=== PATIENT | male | born 1995 | race Two or more races ===

== ENCOUNTER 2024-11-17 02:36 | Emergency (ER) | payer MEDICAID, SELFPAY ==
[2024-11-17 02:38] VITALS: BMI 34.9
--- NOTE | 2024-11-17 03:00 | PC.NURSE ---
CALLED PT IN ER LOBBY AND OUTSIDE AND NO ANSWER AT THIS TIME.
--- NOTE | 2024-11-17 03:48 | PC.NURSE ---
no answer when called to be seen
--- NOTE | 2024-11-17 03:52 | PD.EDADDENDU ---
Emergency Room Addendum Addendum Narrative: When I looked for the patient to start my evaluation, I was told the patient eloped. Ashish So MD
--- NOTE | 2024-11-17 05:00 | PC.NURSE ---
CALLED PT IN ER LOBBY AND ER AND NO ANSWER.
--- NOTE | 2024-11-17 06:07 | PC.NURSE ---
CALLED PT IN ER AND ER LOBBY AND NO ANSWER.
== END 2024-11-17 06:10 | disposition left against medical advice (07) ==
LOC: SERX 04:10
PROVIDERS: Emergency Provider Emergency Medicine
DX: Z53.21 Procedure and treatment not carried out due to patient leaving prior to being seen by health care provider (principal)
CPT/HCPCS: 99281

== ENCOUNTER 2024-12-10 17:05 | Emergency (ER) | payer MEDICAID, SELFPAY ==
[2024-12-10 17:14] VITALS: BP 118/72; PULSE 83; RESP 19; TEMP 36.4; O2SAT 99
[2024-12-10 17:18] VITALS: BMI 33.5
--- NOTE | 2024-12-10 17:20 | PC.NURSE ---
PER EMS PT WAS GIVEN 0.4 EPI SC AND 50MG IM BENADRYL. V/S 124/88 102 97 ON 6 l
--- NOTE | 2024-12-10 17:52 | EDNOTE_ITS ---
<Statement entered by Trupti Rivero MD - 12/11/24 06:24> As co-signing physician, I was present and available for consult prn. I concur with the plan and care as documented by the midlevel provider. ED General RME/HPI General Chief complaint: Allergic Reaction Stated complaint: ALLERGIC REACTION Time Seen by Provider: 12/10/24 17:46 Arrival date/time: 12/10/24 17:05 CC: Allergic reaction HPI onset today has since resolved patient states he had an episode where he felt like he could not breathe after eating a hamburger and avocado. Patient has had 2 prior episodes, each with different food each 1 of these episodes resolved with drinking milk. Patient does have a history of anxiety, patient states all symptoms are completely resolved they states he is shoulders are feeling heavy . Patient denies fever chills shortness of breath difficulty breathing does not have a PCP and takes no medicines and has no allergies. Currently the patient has no symptoms Related Data Previous Rx's ?Medication ?Instructions ?Recorded hydrocodone 5 mg-acetaminophen 325 1 tab PO TID #20 ta bs 10/02/20 mg tablet pantoprazole 20 mg tablet,delayed 20 mg PO QDAY #14 ta bs 12/10/24 release (Protonix) Allergies Allergy/AdvReac Type Severity Reaction Status Date / Time peanut oil Allergy Severe DIFF Verified 11/17/24 02:41 BREATHNG PEANUT BUTTER Allergy Severe DIFF Uncoded 11/17/24 02:41 BREATHING Review of Systems Review of Systems Narrative Review of Systems: GEN: No fever, no chills, no weight loss EYES: No discharge, no visual changes, no pain HEENT: No ear pain, no congestion, no sore throat PULM: No shortness of breath, no cough, no congestion CV: No chest pain, no dyspnea on exertion, no palpitations GI: No nausea, no vomiting, no diarrhea, no pain, no constipation : No frequency, no urgency, no dysuria MUSC/SKEL: No joint pain, no back pain SKIN: No rash PSYCH: No hallucinations, no depression HEME/LYMPH: No easy bleeding or bruising tendencies NEURO: No weakness, no headache Past Medical History Past Medical History CARDIAC: Negative Cardiac Disorders or Congestive Heart Failure RESPIRATORY: Positive Asthma; Negative Chronic Obstructive Pulmonary Disease (COPD) GENITOURINARY: Negative Renal Disease ENDOCRINE: Negative Diabetes Mellitus Type 1 or Diabetes Mellitus Type 2 HEMATOLOGIC: Negative Sickle Cell Disease Social History SMOKING STATUS: Never smoker ED Exam Narrative Physical exam: [General: Obese not in any acute distress Head normocephalic HEENT: Eyes pupils are PERRLA EOMs are intact mouth pink moist membranes uvula is midline swallow symmetrical phonation is normal. No stridor with auscultation. Nose no rhinorrhea all other subsystems within acceptable limits Neck is supple nontender no JVD no edema no stridor on auscultation. Chest equal chest rise nontender to palpation Respiratory: Clear to auscultation no wheezes crackles or rubs CV: Rate rhythm is regular no murmurs rubs or clicks Abdomen is distended secondary to body habitus soft nontender no masses positive bowel sounds all 4 quadrants Back: No CVA tenderness no spinous process tenderness from cervical spine thoracic and lumbar spine Skin: Intact no petechiae rash induration ulceration or crepitus Extremities: Moving all extremity against resistance cap refill less than 2 s econds neurosensory intact Neuro: Awake alert oriented x3 Glascow coma 15 no focal deficits] Course Quality Measures none Vital Signs Vital signs: Vital Signs Temperature 97.5 F 12/10/24 17:14 Pulse Rate 83 12/10/24 17:14 Respiratory Rate 19 12/10/24 17:14 Blood Pressure 118/72 12/10/24 17:14 Pulse Oximetry (%) 99 12/10/24 17:14 Oxygen Delivery Method Nasal Cannula 12/10/24 17:14 Oxygen Flow Rate 6 12/10/24 17:14 Discharge Plan Plan Patient Disposition: HOME (Self Care) Patient condition on transfer: Stable Prescriptions/Referrals Prescriptions/Med Rec: New pantoprazole [Protonix] 20 mg tablet,delayed release (DR/EC) 20 mg PO QDAY Qty: 14 0RF No Action hydrocodone-acetaminophen 5-325 mg tablet 1 tab PO TID MDD 3 Qty: 20 0RF Referrals: Ever Bagley MD [Physician, Family Practice] - In 1 week No Primary/Family,Physician [Primary Care Provider] - In 1 week Problem List Clinical Impression: Allergic reaction, Anxiety Patient/Caregiver Discharge Instructions Education Materials: ED Anxiety Reaction Additional Instructions: Take the medication as prescribed follow-up with the physician listed above Print Language: Bel[place]ian Stand Alone Forms: [employer]ellen Award Info., Patient Portal Info Letter, Work/School Release MDM Clinical Information Provided by patient Medical Records Reviewed [facility] Meds/Rx Considered, not Ordered None Labs/Rad/Tests considered, not Ordered None Chronic Illness/Social Conditions Add or document further as needed: Anxiety Lab Interpretation Labs: none Imaging Imaging interpretation: none Diagnosis Differential diagnosis: Anxiety Food allergy esophageal edema epiglottitis Most likely dx, and/or detailed dx discussion: I suspect more anxiety than anything else, the patient has had resolution of symptoms with milk in spite of it being different foods over 3 separate occasions. Patient is advised to follow-up with a primary care doctor there is a possibility that it is reflux patient will be started on famotidine and to follow-up with the PCP. Dispositon Disposition: Discharge Home
== END 2024-12-10 18:17 | disposition home or self-care (01) ==
PROVIDERS: Emergency Provider Emergency Medicine
DX: T78.40XA Allergy, unspecified, initial encounter (principal); F41.9 Anxiety disorder, unspecified; X58.XXXA Exposure to other specified factors, initial encounter
CPT/HCPCS: 99281